=== PATIENT | male | born 2000 | race Two or more races ===

== ENCOUNTER 2022-04-01 06:48 | Emergency (ER) | payer MEDICAID, OTHER ==
[~2022-04-01] VITALS: Ht 177.8 cm; Wt 63.5 kg
[2022-04-01 07:12] VITALS: BP 129/80
[2022-04-01] MEDS ORDERED: IBUP800T27 PO (07:44)
[2022-04-01] MEDS ORDERED: CLIN300C8 PO (07:44)
[2022-04-01] MEDS ORDERED: IBUPROFEN 800 MG TAB PO ONE (07:45)
== END 2022-04-01 07:59 | disposition home or self-care (01) ==
LOC: ER 06:48
DX: K04.7 Periapical abscess without sinus (principal)